=== PATIENT | male | born 1980 | race Caucasian/White ===

== ENCOUNTER → 2020-01-08 | Day surgery (SDC) | payer BC ==
[~2020-01-08] MED LIST: CRESTOR10 MG PO; FENTANYL CITRATE/PF 100MCG/2 ML INJ ONE; HYOSCYAMINE 0.125 MG TAB ONE; LIDOCAINE HCL 2% LOCAL INJ 5 ML SDV VIAL INJ ONE; LOSARTAN-HCTZ1 EAC1 PO; MELOXICAM7.5 MG PO; MIDAZOLAM HCL 2 MG/2 ML VIAL ONE; PROPOFOL IV EMULSION 10 MG/ML 50 ML VIAL ONE
[2020-01-08 15:30] VITALS: BP 110/73
--- NOTE | 2020-01-11 05:43 | Operative Report ---
DATE OF PROCEDURE: 01/08/2020 SURGEON: Ian Smith MD PROCEDURE: Colonoscopy with polypectomy and biopsies. INDICATION FOR COLONOSCOPY: Surveillance colonoscopy, personal history of colon polyps. MEDICATIONS: The patient was done under MAC, please see anesthesiologist's note. PROCEDURE IN DETAIL: With the patient in left lateral decubitus position, flexible fiberoptic Olympus colonoscope was inserted into the rectum with ease and advanced all the way to the cecum. The scope was then withdrawn slowly, mucosa overlying the cecum appeared to be within normal limits as well as the mucosa overlying the ascending colon. A prominent fold was noted in the mid transverse colon that was biopsied. The rest of the transverse and descending appeared to be within normal limits. One polyp was hot biopsied from the sigmoid colon. Three polyps were hot biopsied in the rectum. The scope was then retroflexed into the distal rectum and small internal hemorrhoids were noted, none of which was actively bleeding. The scope was then straightened out, it was subsequently withdrawn. The patient tolerated the procedure well. IMPRESSION: 1. Prominent fold, transverse colon, biopsied. 2. Sigmoid colon polyp, hot biopsied. 3. Rectal polyps x3, hot biopsied. 4. Internal hemorrhoids, none actively bleeding. PLAN: Follow up histology. Initiate high-fiber, low-fat diet. Initiate high-fiber supplement. Timing of followup colonoscopy pending pathology report. If biopsies from prominent folds were benign colonic mucosa, then the patient will need a followup colonoscopy in 3 years. Ian Smith MD [facility] [place] /[id number] cc: Leonard Stewart DO
== END | disposition home or self-care (01) ==
LOC: OR 11:02
PROVIDERS: ATTEND Internal Medicine Gastroenterology
DX: K62.89 Other specified diseases of anus and rectum (principal); K63.5 Polyp of colon; K62.1 Rectal polyp; K63.89 Other specified diseases of intestine; K64.8 Other hemorrhoids; R14.0 Abdominal distension (gaseous); I10 Essential (primary) hypertension; E66.01 Morbid (severe) obesity due to excess calories; Z01.810 Encounter for preprocedural cardiovascular examination; Z68.43 Body mass index [BMI] 50.0-59.9, adult; Z83.71 Family history of colonic polyps
CPT/HCPCS: 45380; 45384; 93005; J2001; J2250; J2704; J3010; 45378

== ENCOUNTER 2020-01-11 19:41 | Observation (INO) | payer BC ==
[~2020-01-11] VITALS: Ht 180.3 cm; Wt 141.1 kg
[~2020-01-11 19:41] MED LIST changes: -FENTANYL CITRATE/PF 100MCG/2 ML INJ ONE; -HYOSCYAMINE 0.125 MG TAB ONE; -LIDOCAINE HCL 2% LOCAL INJ 5 ML SDV VIAL INJ ONE; -MIDAZOLAM HCL 2 MG/2 ML VIAL ONE; -PROPOFOL IV EMULSION 10 MG/ML 50 ML VIAL ONE
[2020-01-11 20:39] LABS: BASOPHILS # (AUTO) 0.1 (0.0-0.1); BASOPHILS % 0.8 % (0.0-1.0); EOSINOPHILS # (AUTO) 0.2 (0.0-0.4); EOSINOPHILS % 1.9 % (0.0-6.0); HEMATOCRIT 43.6 % (38.2-49.6); HEMOGLOBIN 15.3 g/dL (14.0-18.0); LYMPHOCYTES # (AUTO) 3.4 (1.0-3.2); LYMPHOCYTES % 32.7 % (18.0-39.1); MEAN CORPUSCULAR HEMOGLOBIN 29.9 pg (28-32); MEAN CORPUSCULAR HGB CONC 35.1 g/dL (31-35); MEAN CORPUSCULAR VOLUME 85.3 fL (81-99); MONOCYTES # (AUTO) 0.8 (0.2-0.8); MONOCYTES % 7.9 % (4.4-11.3); NEUTROPHILS # (AUTO) 5.8 (2.1-6.9); NEUTROPHILS % 56.4 % (38.7-80.0); PLATELET COUNT 309 x10e3/uL (140-360); RED BLOOD COUNT 5.11 x10e6/uL (4.3-5.7); RED CELL DISTRIBUTION WIDTH 11.9 % (11.7-14.4)
[2020-01-11 20:46] LABS: INR 0.91; PROTHROMBIN TIME 12.8 seconds (11.9-14.5)
[2020-01-11 20:47] LABS: PARTIAL THROMBOPLASTIN TIME 27.8 seconds (23.8-35.5)
[2020-01-11 20:56] LABS: ALANINE AMINOTRANSFERASE 44 IU/L (0-55); ALBUMIN 4.2 g/dL (3.5-5.0); ALBUMIN/GLOBULIN RATIO 1.2 (0.8-2.0); ALKALINE PHOSPHATASE 71 IU/L (40-150); ANION GAP 13.5 mmol/L (8-16); BLOOD UREA NITROGEN 13 mg/dL (7-26); BUN/CREATININE RATIO 14 (6-25); CALCIUM 9.6 mg/dL (8.4-10.2); CARBON DIOXIDE 26 mmol/L (22-29); CHLORIDE 106 mmol/L (98-107); CREATININE, SERUM 0.94 mg/dL (0.72-1.25); EST GLOMERULAR FILTRATION RATE > 60 ML/MIN (60-); GLUCOSE 100 mg/dL (74-118); POTASSIUM 3.5 mmol/L (3.5-5.1); SODIUM 142 mmol/L (136-145)
[2020-01-11 21:50] VITALS: BP 185/110
[2020-01-11] MEDS: PANTOPRAZOLE 40 MG 10ML VIAL IV SCH (23:42)
[2020-01-11] MEDS: SODIUM CHLORIDE 0.9% 1000ML 1,000 ML IV SCH (23:42)
[2020-01-12] VITALS (11 sets, daily range): BP systolic 133–156; BP diastolic 77–96
[2020-01-12 01:44] LABS: HEMATOCRIT 40.5 % (38.2-49.6)
--- NOTE | 2020-01-12 02:04 | NUR ---
PT IS TRANSFERRED FROM ER .PT IS AOX3 .RESPIRATIONS ARE EVEN AND UNLABORED SKIN INTACT C/O LOWER ABD PAIN THE SCALE 2/10.ORIENTED THE PT TO THE ENVIRONMENT.CALL LIGHT WITH IN REACH .CONTINUE TO MONITOR
[2020-01-12] MEDS: SODIUM CHLORIDE 0.9% 1000ML 1,000 ML IV SCH ×3 (06:09→21:22)
--- NOTE | 2020-01-12 06:43 | NUR ---
PT RESTING PT HAS 2 BM WITH BLOOD ,DENIES PAIN ,CALL LIGHT WITH IN REACH ,CONTINUE TO MONITOR
--- NOTE | 2020-01-12 07:05 | NUR ---
BEDSIDE REPORT GIVEN TOT THE ONCOMING NURSE
[2020-01-12] MEDS: PANTOPRAZOLE 40 MG 10ML VIAL IV SCH (09:22)
[2020-01-12 13:13] LABS: HEMATOCRIT 34.6 % (38.2-49.6); HEMOGLOBIN 12.1 g/dL (14.0-18.0)
[2020-01-12 19:53] LABS: HEMATOCRIT 35.4 % (38.2-49.6); HEMOGLOBIN 12.2 g/dL (14.0-18.0)
[2020-01-13 00:49] VITALS: BP 138/80
[2020-01-13 00:59] VITALS: BP 136/80
[2020-01-13 05:19] VITALS: BP 116/67
[2020-01-13 05:52] VITALS: BP 116/67
[2020-01-13 05:58] LABS: HEMATOCRIT 32.5 % (38.2-49.6); HEMOGLOBIN 11.2 g/dL (14.0-18.0)
[2020-01-13 08:30] VITALS: BP_SYST 116; BP_SYST 124; BP_DIAS 67; BP_DIAS 71
[2020-01-13 11:43] VITALS: BP 162/81
[2020-01-13 12:11] LABS: HEMATOCRIT 37.1 % (38.2-49.6); HEMOGLOBIN 12.9 g/dL (14.0-18.0)
--- NOTE | 2020-01-13 13:32 | NUR ---
patient discharged home, Dr Blanco Smith had rounds , discharge order recvd, Cleared from Dr Solitario Smith, No IV line with patient, no prescriptions, denies any pain , no distress, transported via wheelchair to [facility].
== END 2020-01-13 13:15 | disposition home or self-care (01) ==
LOC: ER 19:41 → ERHOLD 21:45 → MED/SURG3 22:38
DX: K91.840 Postprocedural hemorrhage of a digestive system organ or structure following a digestive system procedure (principal); Z82.49 Family history of ischemic heart disease and other diseases of the circulatory system; K92.2 Gastrointestinal hemorrhage, unspecified; I10 Essential (primary) hypertension
CPT/HCPCS: 36415 ×3; 80053; 85014 ×2; 85018 ×2; 85025; 85610; 85730; 86850; 86900; 99284; C9113 ×3; G0378 ×3; J7030 ×2

== ENCOUNTER 2022-02-01 19:34 | Observation (INO) | payer BC ==
[~2022-02-01] VITALS: Ht 180.3 cm; Wt 146.1 kg
[2022-02-01 20:17] LABS: BASOPHILS # (AUTO) 0.1 (0.0-0.1); BASOPHILS % 0.7 % (0.0-1.0); EOSINOPHILS # (AUTO) 0.2 (0.0-0.4); EOSINOPHILS % 1.4 % (0.0-6.0); HEMATOCRIT 49.7 % (38.2-49.6); HEMOGLOBIN 17.4 g/dL (14.0-18.0); LYMPHOCYTES # (AUTO) 3.1 (1.0-3.2); LYMPHOCYTES % 28.6 % (18.0-39.1); MEAN CORPUSCULAR HEMOGLOBIN 30.1 pg (28-32); MONOCYTES # (AUTO) 0.8 (0.2-0.8); MONOCYTES % 7.3 % (4.4-11.3); NEUTROPHILS # (AUTO) 6.8 (2.1-6.9); NEUTROPHILS % 61.7 % (38.7-80.0); PLATELET COUNT 303 x10e3/uL (140-360); RED BLOOD COUNT 5.78 x10e6/uL (4.3-5.7); RED CELL DISTRIBUTION WIDTH 12.2 % (11.7-14.4)
[2022-02-01 20:34] LABS: CLARITY,URINE CLEAR (CLEAR); COLOR,URINE YELLOW (YELLOW); LEUKOCYTE ESTERASE ,URINE NEGATIVE (NEGATIVE); NITRITE,URINE NEGATIVE (NEGATIVE)
[2022-02-01 20:35] LABS: KETONES,URINE NEGATIVE (NEGATIVE); PROTEIN,URINE DIPSTICK NEGATIVE (NEGATIVE); URINE UROBILINOGEN 0.2 mg/dL (0.2 - 1)
[2022-02-01 20:37] LABS: ALBUMIN 4.5 g/dL (3.5-5.0); ALBUMIN/GLOBULIN RATIO 1.2 (0.8-2.0); ANION GAP 13.6 mmol/L (8-16); CALCIUM 9.7 mg/dL (8.4-10.2); CREATININE, SERUM 0.98 mg/dL (0.72-1.25); POTASSIUM 3.6 mmol/L (3.5-5.1)
[2022-02-01 20:46] LABS: CREATINE KINASE MB 2.2 ng/mL (0-5.0)
[2022-02-01] MEDS ORDERED: SODIUM CHLORIDE 0.9% 50ML 50 ML ONE (21:02)
[2022-02-01] MEDS ORDERED: IOPAMIDOL 370 MG/ML 200 ML INFUS..BTL INJ ONE (21:03)
[2022-02-01] MEDS ORDERED: Morphine 4mg Syringe 4 MG/ML INJ IV STA (21:31)
[2022-02-01] MEDS ORDERED: ONDANSETRON HCL INJ 2MG/ML 2ML 2 MG/ML VIAL IV STA (21:32)
[2022-02-01] MEDS ORDERED: Morphine 4mg Syringe 4 MG/ML INJ IV PRN (22:00)
[2022-02-01] MEDS ORDERED: SODIUM CHLORIDE 0.9% 1000ML 1,000 ML IV SCH (22:00)
[2022-02-01] MEDS ORDERED: ONDANSETRON HCL INJ 2MG/ML 2ML 2 MG/ML VIAL IV PRN (22:00)
[2022-02-01 23:06] VITALS: BP 185/113
== END 2022-02-01 23:00 | disposition left against medical advice (07) ==
LOC: ER 19:40 → ERHOLD 22:33
DX: K56.600 Partial intestinal obstruction, unspecified as to cause (principal); I10 Essential (primary) hypertension; Z86.010 Personal history of colon polyps; E66.9 Obesity, unspecified; Z20.822 Contact with and (suspected) exposure to COVID-19; Z68.41 Body mass index [BMI] 40.0-44.9, adult
CPT/HCPCS: 36415; 74177; 80053; 81001; 82550; 82553; 83690; 84484; 85025; 93005; 94799; 99284; G0378; Q9967; U0002; J2270; J2405

== ENCOUNTER → 2023-01-23 | Day surgery (SDC) | payer BC ==
[~2023-01-23] MED LIST changes: +FENTANYL CITRATE/PF 100MCG/2 ML INJ ONE; +HYOSCYAMINE SULFATE 0.5 MG/ML INJ ONE; +LACTATED RINGER'S 1,000 ML ONE; +LIDOCAINE HCL 2% LOCAL INJ 5 ML SDV VIAL INJ ONE; +METAMUCIL FIBE3.4 GM PO; +MIDAZOLAM HCL 2 MG/2 ML VIAL ONE; +PROPOFOL IV EMULSION 10 MG/ML 50 ML VIAL IV ONE
[2023-01-23 12:55] VITALS: BP 111/88
== END | disposition home or self-care (01) ==
LOC: OR 10:36
PROVIDERS: ATTEND Internal Medicine Gastroenterology
DX: Z09 Encounter for follow-up examination after completed treatment for conditions other than malignant neoplasm (principal); D12.3 Benign neoplasm of transverse colon; D12.5 Benign neoplasm of sigmoid colon; K64.8 Other hemorrhoids; Z71.3 Dietary counseling and surveillance; I10 Essential (primary) hypertension; Z71.89 Other specified counseling; Z01.810 Encounter for preprocedural cardiovascular examination; Z79.899 Other long term (current) drug therapy; Z68.42 Body mass index [BMI] 45.0-49.9, adult
CPT/HCPCS: 45385; 93005; J1980; J2001; J2250; J2704; J3010; J7121; 45378; 45380